=== PATIENT | female | born 2000 | race Caucasian/White ===

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

== ENCOUNTER 2019-05-26 15:28 | Emergency (ER) | payer OTHER ==
[~2019-05-26] VITALS: Ht 162.6 cm; Wt 85.0 kg
[2019-05-26] MEDS ORDERED: BENZOCAINE/MENTHOL LOZENGE PO ONE (16:45)
[2019-05-26] MEDS ORDERED: IBUPROFEN 400 MG TABLET PO ONE (16:45)
[2019-05-26 17:17] VITALS: BP 126/85
== END 2019-05-26 17:55 | disposition home or self-care (01) ==
LOC: EMS 15:29
DX: J02.0 Streptococcal pharyngitis (principal)
CPT/HCPCS: 87430